=== PATIENT | male | born 1980 | race Caucasian/White ===

== ENCOUNTER 2017-05-13 16:42 | Emergency (ER) | payer MEDICAID ==
[~2017-05-13] VITALS: Ht 182.9 cm; Wt 84.0 kg
[~2017-05-13 16:42] MED LIST: BUPR1FIL3 PO; DIAZ10TA PO; DIVA500T4 PO; Gabapentin PO; HYDR25CA PO; LAMO25TA PO; LORA-446 PO; PROM25SU34 RC
[2017-05-13 16:51] VITALS: BP 128/80
[2017-05-13] MEDS ORDERED: MAALOX/HYOSCYAMINE/LIDOCAINE 45 ML BOTTLE PO ONE (18:00)
[2017-05-13] MEDS ORDERED: MAALOX/HYOSCYAMINE/LIDOCAINE 45 ML BOTTLE ONE (18:05)
[2017-05-13] MEDS ORDERED: BUSP10TA PO (18:08)
== END 2017-05-13 18:16 | disposition home or self-care (01) ==
LOC: ED 18:10
DX: K08.89 Other specified disorders of teeth and supporting structures (principal); F17.200 Nicotine dependence, unspecified, uncomplicated
CPT/HCPCS: 99283

== ENCOUNTER 2017-09-09 15:13 | Emergency (ER) | payer MEDICAID ==
[~2017-09-09] VITALS: Ht 182.9 cm; Wt 95.3 kg
[~2017-09-09 15:13] MED LIST changes: +BUSP10TA PO
[2017-09-09] MEDS ORDERED: SODIUM CHLORIDE 0.9% 1,000 ML IV ONE (15:34)
[2017-09-09 15:57] LABS: HEMATOCRIT 44.4 % (39.2-51.8); HEMOGLOBIN 15.3 g/dL (13.7-18.0); WHITE BLOOD COUNT 9.1 x10^3/uL (3.4-10)
[2017-09-09] MEDS ORDERED: SODIUM CHLORIDE FLUSH 10ML SYR IVF ONE (16:00)
[2017-09-09] MEDS ORDERED: SODIUM CHLORIDE 0.9% 1,000ML IVBOLUS ONE (16:00)
[2017-09-09 16:08] LABS: BLOOD UREA NITROGEN 10 mg/dL (7-18)
[2017-09-09 16:11] LABS: ASPARTATE AMINO TRANSFERASE 37 U/L (15-37)
[2017-09-09] MEDS ORDERED: HYDROmorphone 1 MG/ML, 1ML IVPush PRN (16:30)
[2017-09-09] MEDS ORDERED: ONDANSETRON 2MG/ML, 2ML IVPush ONE (16:30)
[2017-09-09] MEDS ORDERED: OMNIPAQUE 350 MG/ML, 100ML BOTTLE ONE (16:51)
[2017-09-09] MEDS ORDERED: HYDROmorphone 1 MG/ML, 1ML ONE (16:55)
[2017-09-09] MEDS ORDERED: ONDANSETRON 2MG/ML, 2ML ONE (16:55)
[2017-09-09 17:54] VITALS: BP 123/80
== END 2017-09-09 18:00 | disposition home or self-care (01) ==
LOC: ED 17:12
DX: K08.89 Other specified disorders of teeth and supporting structures (principal); R10.84 Generalized abdominal pain; R19.7 Diarrhea, unspecified; K01.1 Impacted teeth
CPT/HCPCS: 36415; 74177; 80053; 85025; 96361; 96374; 96375; 99285; J1170; J2405; J7030; Q9967

== ENCOUNTER 2018-06-08 04:33 | Emergency (ER) | payer MEDICAID ==
[~2018-06-08] VITALS: Ht 182.9 cm; Wt 74.4 kg
[2018-06-08] MEDS ORDERED: SODIUM CHLORIDE 0.9% 1,000 ML IV ONE (04:46)
[2018-06-08] MEDS ORDERED: ONDANSETRON 2MG/ML, 2ML IVPush ONE (05:00)
[2018-06-08] MEDS ORDERED: FAMOTIDINE 20 MG/2 ML IVP ONE (05:00)
[2018-06-08] MEDS ORDERED: SODIUM CHLORIDE 0.9% 1,000ML IVBOLUS ONE (05:00)
[2018-06-08] MEDS ORDERED: FAMOTIDINE 20 MG/2 ML ONE (05:03)
[2018-06-08] MEDS ORDERED: ONDANSETRON 2MG/ML, 2ML ONE (05:03)
[2018-06-08 05:04] LABS: BASOPHILS # (AUTO) 0.17 x10^3/uL (0-0.1); BASOPHILS % (AUTO) 1 % (0-1); EOSINOPHILS # (AUTO) 0.02 x10^3/uL (0-0.4); EOSINOPHILS % (AUTO) 0 % (1-7); LYMPHOCYTES # (AUTO) 2.38 x10^3/uL (1-3.4); LYMPHOCYTES % (AUTO) 16 % (22-44); MD NO; MEAN CORPUSCULAR HEMOGLOBIN 31.7 pg (27.5-34.5); MEAN CORPUSCULAR HGB CONC 34.3 g/dL (33.2-36.2); MEAN CORPUSCULAR VOLUME 92.5 fL (81-97); MONOCYTES # (AUTO) 1.28 x10^3/uL (0.2-0.8); MONOCYTES % (AUTO) 9 % (2-9); NEUTROPHILS # (AUTO) 11.03 x10^3/uL (1.8-6.8); NEUTROPHILS % (AUTO) 74 % (42-75); PLATELET COUNT 357 x10^3/uL (130-400); RED BLOOD COUNT 5.17 x10^6/uL (4.38-5.82); RED CELL DISTRIBUTION WIDTH 13.6 % (9.4-14.8)
[2018-06-08 05:17] LABS: ALANINE AMINOTRANSFERASE 25 U/L (12-78); ALBUMIN 4.6 g/dL (3.4-5.0); ANION GAP 11 mmol/L (5-15); CALCIUM 9.3 mg/dL (8.5-10.1); CHLORIDE 101 mmol/L (98-107); CREATININE 1.05 mg/dL (0.7-1.3)
[2018-06-08 05:19] LABS: ALKALINE PHOSPHATASE 54 U/L (45-117)
[2018-06-08 05:24] LABS: MICROSCOPIC INDICATED
[2018-06-08] MEDS ORDERED: METOCLOPRAMIDE 5 MG/ML, 2ML IVPush ONE (05:30)
[2018-06-08] MEDS ORDERED: DIPHENHYDRAMINE 50 MG/ML, 1ML IVPush ONE (05:30)
[2018-06-08 05:31] LABS: CULTURE INDICATED? YES
[2018-06-08] MEDS ORDERED: METOCLOPRAMIDE 5 MG/ML, 2ML ONE (05:36)
[2018-06-08] MEDS ORDERED: DIPHENHYDRAMINE 50 MG/ML, 1ML ONE (05:36)
[2018-06-08 05:55] VITALS: BP 147/94
== END 2018-06-08 06:17 | disposition home or self-care (01) ==
LOC: ED 06:11
DX: R10.13 Epigastric pain (principal); R11.2 Nausea with vomiting, unspecified; F32.9 Major depressive disorder, single episode, unspecified
CPT/HCPCS: 36415; 80053; 81001; 83690; 85025; 87086; 96361; 96374; 96375; 99284; J1200; J2405; J2765; J7030; S0028

== ENCOUNTER 2018-06-10 07:08 | Emergency (ER) | payer MEDICAID ==
[~2018-06-10] VITALS: Ht 182.9 cm; Wt 78.0 kg
[2018-06-10] MEDS ORDERED: MAALOX/HYOSCYAMINE/LIDOCAINE 45 ML BTL PO ONE (07:30)
[2018-06-10] MEDS ORDERED: SODIUM CHLORIDE 0.9% 1,000ML IVBOLUS ONE (07:30)
[2018-06-10] MEDS ORDERED: FAMOTIDINE 20 MG/2 ML IVP ONE (07:30)
[2018-06-10] MEDS ORDERED: SODIUM CHLORIDE FLUSH 10ML SYR IVF ONE (07:30)
[2018-06-10] MEDS ORDERED: MAALOX/HYOSCYAMINE/LIDOCAINE 45 ML BTL ONE (07:40)
[2018-06-10] MEDS ORDERED: FAMOTIDINE 20 MG/2 ML ONE (07:41)
[2018-06-10 07:44] LABS: BASOPHILS # (AUTO) 0.05 x10^3/uL (0-0.1); BASOPHILS % (AUTO) 0 % (0-1); EOSINOPHILS # (AUTO) 0.02 x10^3/uL (0-0.4); EOSINOPHILS % (AUTO) 0 % (1-7); LYMPHOCYTES # (AUTO) 2.27 x10^3/uL (1-3.4); LYMPHOCYTES % (AUTO) 19 % (22-44); MD NO; MEAN CORPUSCULAR HEMOGLOBIN 31.1 pg (27.5-34.5); MEAN CORPUSCULAR HGB CONC 34.4 g/dL (33.2-36.2); MEAN CORPUSCULAR VOLUME 90.5 fL (81-97); MEAN PLATELET VOLUME 8.1 fL (7.4-10.4); MONOCYTES # (AUTO) 0.87 x10^3/uL (0.2-0.8); MONOCYTES % (AUTO) 7 % (2-9); NEUTROPHILS # (AUTO) 8.76 x10^3/uL (1.8-6.8); NEUTROPHILS % (AUTO) 73 % (42-75); PLATELET COUNT 342 x10^3/uL (130-400); RED BLOOD COUNT 5.35 x10^6/uL (4.38-5.82)
[2018-06-10 07:53] LABS: ALANINE AMINOTRANSFERASE 28 U/L (12-78); ALBUMIN 4.5 g/dL (3.4-5.0); ANION GAP 13 mmol/L (5-15); CALCIUM 9.5 mg/dL (8.5-10.1); CHLORIDE 98 mmol/L (98-107); CREATININE 0.85 mg/dL (0.7-1.3)
[2018-06-10 07:55] LABS: ALKALINE PHOSPHATASE 49 U/L (45-117); BILIRUBIN,TOTAL 1.3 mg/dL (0.2-1.0); TOTAL PROTEIN 7.9 g/dL (6.4-8.2)
[2018-06-10 09:00] LABS: MICROSCOPIC AUTO
[2018-06-10 09:01] LABS: CULTURE INDICATED? NO
[2018-06-10] MEDS ORDERED: KETOROLAC 30 MG/1 ML ONE (09:41)
[2018-06-10] MEDS ORDERED: POTASSIUM CHLORIDE 20 MEQ TAB.ER.PRT PO ONE (10:00)
[2018-06-10] MEDS ORDERED: KETOROLAC 30 MG/1 ML IVPush ONE (10:00)
[2018-06-10 10:54] VITALS: BP 123/83
== END 2018-06-10 10:56 | disposition home or self-care (01) ==
LOC: ED 08:58
DX: R11.2 Nausea with vomiting, unspecified (principal); G89.29 Other chronic pain; Z87.891 Personal history of nicotine dependence
CPT/HCPCS: 36415; 80053; 81001; 83690; 85025; 96361; 96374; 96375; 99285; J1885; J7030; S0028